=== PATIENT | male | born 1950 | race Caucasian/White ===

== ENCOUNTER → 2020-08-11 09:02 | Outpatient (CLI) | payer MEDICARE, SELFPAY ==
--- NOTE | ~2020-08-11 | XR_ITS ---
EXAMINATION: XR hand LT 2V, XR wrist LT 2V DATE: 08/11/2020 09:25 INDICATION: Left hand and wrist pain and swelling TECHNIQUE: 1. Posteroanterior and lateral views of the left wrist were obtained. 2. Dorsal palmar and lateral views of the left hand were obtained. COMPARISON: None. FINDINGS: Alignment of the hand and wrist are normal. No fracture identified. Chondrocalcinosis at the triangu lar fibrocartilage complex. Polyarticular osteoarthritis, severe at the radiolunate articulation of t he wrist joint, moderate to severe at the first carpometacarpal joint and moderate severity at the tr iscaphe, first interphalangeal, third metacarpophalangeal and second and third distal interphalangeal joints and mild at the distal radioulnar and many of the remaining metacarpophalangeal and interphal angeal joints. Likely degenerative cystic change at the triquetrum. The constellation of findings are atypical prominence of the osteoarthritis at the radiolunate and second and third metacarpophalangea l joints along with chondrocalcinosis can be seen in the setting of calcium pyrophosphate deposition (CPPD) disease. Mild soft tissue swelling at the ulnar side of the wrist and about many of the interp halangeal joints. Loose osteochondral body palmar to the radial styloid process. IMPRESSION: 1. Chondrocalcinosis and somewhat atypical pattern of moderate to severe polyarticular osteoarthritis at the left hand and wrist which could be secondary to calcium pyrophosphate deposition (CPPD) disea se. Reviewed, dictated and finalized at location B. [employer] IMPRESSION: 1. Chondrocalcinosis and somewhat atypical pattern of moderate to severe polyar ticular osteoarthritis at the left hand and wrist which could be secondary to c alcium pyrophosphate deposition (CPPD) disease.
== END ==
PROVIDERS: PCP Internal Medicine; Visit Provider Nurse Practitioner
DX: M79.89 Other specified soft tissue disorders (principal); M19.032 Primary osteoarthritis, left wrist; M11.232 Other chondrocalcinosis, left wrist
CPT/HCPCS: 73100; 73120

== ENCOUNTER → 2022-08-04 10:38 | Outpatient (CLI) | payer MEDICARE, SELFPAY ==
--- NOTE | ~2022-08-04 | MR_ITS ---
MRI of the lumbar spine Clinical History: Back pain Technique: Axial T2-weighted images, and sagittal T1-weighted, T2-weighted, and T2 fat-sat images wer e acquired. COMPARISON: 06/29/2018 Findings: Stable levoscoliosis of the lumbar spine noted. 8 mm anterolisthesis of L5 over S1 is simil ar to prior exam, with underlying chronic bilateral L5 pars interarticularis defects. Minimal grade 1 retrolisthesis of L4 over L5 is similar to prior exam. No acute fracture identified. Reactive marrow signal changes are present due to underlying degenerative disc disease. At L1-L2, disc bulge and facet arthropathy contribute to moderate thecal sac compression/spinal canal stenosis. There is moderate to severe bilateral neural foraminal narrowing. At L2-L3, disc bulge and facet arthropathy contribute to moderate thecal sac compression. There is se judy right neural foraminal narrowing. Left neural foramen is relatively well-preserved. At L3-L4, disc bulge and facet arthropathy are present. There is minimal central canal stenosis. Ther e is severe right neural foraminal narrowing. Left neural foramen is minimally narrowed. At L4-L5, there is disc bulge and facet arthropathy. There is left lateral recess stenosis. There is severe left neural foraminal narrowing and mild right neural foraminal narrowing. At L5-S1, there is disc uncovering/bulge with severe facet arthropathy. No meche spinal canal stenosi s. There is moderate severe bilateral neural foraminal narrowing, right worse than left. Incidental note is made of probable decrease spinal cord caliber increased signal at the T10-T11 leve l, which is due to apparent focal significant compression by disc bulge and facet arthropathy. Paravertebral soft tissues are unremarkable. Impression: Overall, probably no significant change from prior exam. Moderate to severe degenerative spondylitic changes, as detailed above. There is moderate thecal sac compression/spinal canal stenosis at L1-L2 a nd L2-L3. There is multilevel neural foraminal narrowing. Chronic bilateral L5 pars interarticularis defects, with 8mm anterolisthesis of L5 over S1. 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 Minimal grade 1 retrolisthesis of L4 over L5. Stable levoscoliosis. Reviewed, dictated and finalized at location M. [employer] Impression: Overall, probably no significant change from prior exam. Moderate to severe deg enerative spondylitic changes, as detailed above. There is moderate thecal sac compression/spinal canal stenosis at L1-L2 and L2-L3. There is multilevel neura l foraminal narrowing. Chronic bilateral L5 pars interarticularis defects, with 8mm anterolisthesis of L5 over S1. 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 Minimal grade 1 retrolisthesis of L4 over L5. Stable levoscoliosis.
== END ==
PROVIDERS: PCP Internal Medicine; Visit Provider Nurse Practitioner Family
DX: M47.816 Spondylosis without myelopathy or radiculopathy, lumbar region (principal); G95.89 Other specified diseases of spinal cord; M41.9 Scoliosis, unspecified
CPT/HCPCS: 72148

== ENCOUNTER 2023-09-21 10:41 | Outpatient (CLI) | payer MEDICARE, OTHER, SELFPAY ==
[2023-09-21 19:03] LABS: Alanine Aminotransferase 24 U/L (6-50); Albumin Level 4.2 g/dL (3.5-5.1); Alkaline Phosphatase 91 U/L (38-126); Anion Gap 6 mmol/L (8-16); Aspartate Amino Transferase 45 U/L (17-59); Bilirubin,Total 0.6 mg/dL (0.2-1.3); Blood Urea Nitrogen 17 mg/dL (9-20); Calcium 9.2 mg/dL (8.4-10.2); Carbon Dioxide 29 mmol/L (22-30); Chloride 101 mmol/L (98-107); Estimated Glomerular Filt Rate > 60; Glucose 97 mg/dL (65-110); Potassium 4.5 mmol/L (3.4-5.0); Sodium 136 mmol/L (137-145)
== END 2023-09-21 10:42 | disposition home or self-care (01) ==
LOC: ANHGOSHLAB 10:43
PROVIDERS: PCP Internal Medicine; Visit Provider Clinical Nurse Specialist
DX: I10 Essential (primary) hypertension (principal)
CPT/HCPCS: 36415; 80053

== ENCOUNTER 2024-04-02 10:59 | Outpatient (CLI) | payer MEDICARE, SELFPAY ==
[2024-04-02 13:53] LABS: Basophils Absolute Auto 0.1 K/mm3 (0.0-0.1); Basophils Percent Auto 0.7 % (0.2-1.2); Eosinophils Absolute Auto 0.2 K/mm3 (0-0.3); Eosinophils Percent Auto 2.5 % (0-4.4); Hematocrit 42.5 % (42.0-52.0); Hemoglobin 13.7 g/dL (14.0-18.0); Immature Granulocyte Absolute 0.03 K/mm3 (0.00-0.031); Immature Granulocyte Percent A 0.4 % (0-0.5); Lymphocytes Absolute Auto 1.65 K/mm3 (0.9-3.2); Lymphocytes Percent Auto 22.1 % (18.3-44.2); Mean Corpuscular HGB Conc 32.2 g/dl (32-36); Mean Corpuscular Hemoglobin 31.6 pg (26-34); Mean Corpuscular Volume 98.2 fl (80-100); Mean Platelet Volume 9.9 fl (7.4-10.4); Monocytes Absolute Auto 0.9 K/mm3 (0.1-0.6); Monocytes Percent Auto 11.9 % (2.6-8.5); Neutrophils Absolute Auto 4.7 K/mm3 (1.3-6.7); Neutrophils Percent Auto 62.4 % (45.5-73.1); Platelet Count Result 321 k/mm3 (150-375); Red Blood Count 4.33 M/mm3 (4.6-6.20); Red Cell Distribution Width 12.8 % (11.5-14.5); White Blood Count 7.5 K/mm3 (4.5-10.0)
[2024-04-02 14:17] LABS: Alanine Aminotransferase 27 U/L (6-50); Albumin Level 4.5 g/dL (3.5-5.1); Alkaline Phosphatase 74 U/L (38-126); Anion Gap 10 mmol/L (4-12); Aspartate Amino Transferase 55 U/L (17-59); Bilirubin,Total 0.7 mg/dL (0.2-1.3); Blood Urea Nitrogen 16 mg/dL (9-20); Carbon Dioxide 25 mmol/L (22-30); Chloride 101 mmol/L (98-107); Cholesterol 135 mg/dL (0-200); Estimated Glomerular Filt Rate > 60; Glucose 96 mg/dL (65-110); HDL Direct 60 mg/dL; Potassium 4.4 mmol/L (3.4-5.0); Sodium 136 mmol/L (137-145); Triglycerides 72 mg/dL (<150)
[2024-04-02 14:29] LABS: LDL Cholesterol Direct 51 mg/dL
[2024-04-02 14:47] LABS: Prostate Specific Antigen 0.8 ng/mL (< OR = 4.0)
== END 2024-04-02 11:00 | disposition home or self-care (01) ==
LOC: ANHGOSHLAB 11:01
PROVIDERS: PCP Internal Medicine; Visit Provider Clinical Nurse Specialist
DX: E78.5 Hyperlipidemia, unspecified (principal); I10 Essential (primary) hypertension; D64.9 Anemia, unspecified; Z12.5 Encounter for screening for malignant neoplasm of prostate
CPT/HCPCS: 36415; 80053; 80061; 84153; 85025; G0103